=== PATIENT | female | born 1940 | race Two or more races ===

== ENCOUNTER 2020-05-25 16:15 | Inpatient (IN) | payer OTHER ==
[~2020-05-25] VITALS: Ht 162.6 cm; Wt 57.8 kg
[2020-05-25 18:25] LABS: BASOPHILS % 0.3 % (0.0-2.0); EOSINOPHILS % 0.1 % (0.0-5.0); HEMATOCRIT. 34.6 % (36.0-48.0); HEMOGLOBIN. 11.4 g/dL (12.0-16.0); LYMPHOCYTES % 19.1 % (20.0-50.0); MEAN CORPUSCULAR HEMOGLOBIN 32.1 pg (28.0-32.0); MEAN CORPUSCULAR VOLUME 97.6 fL (81.0-99.0); MEAN PLATELET VOLUME 9.9 fl (7.4-10.4); MONOCYTES % 4.5 % (2.0-8.0); PLATELET 146 x1000/uL (130-400); RED BLOOD CELL COUNT 3.54 mill/uL (4.2-5.4)
[2020-05-25] MEDS ORDERED: ADENOSINE 3 MG/ML 2ML VIAL IV ONE ×2 (18:30)
[2020-05-25 18:32] LABS: PROTHROMBIN TIME 10.8 sec (9.6-11.0)
[2020-05-25 18:41] LABS: CHLORIDE 102 mEq/L (98-107)
[2020-05-25 18:45] LABS: ETHANOL BLOOD < 10 mg/dL
[2020-05-25 19:03] LABS: CLARITY URINE CLOUDY (CLEAR); COLOR URINE ORANGE (YELLOW); KETONES URINE TRACE (NEGATIVE); LEUKOCYTE ESTERASE URINE 2+ (NEGATIVE); NITRITE URINE POSITIVE (NEGATIVE); OCCULT BLOOD URINE NEGATIVE (NEGATIVE); PH URINE 5.5 (4.5-8.0); PROTEIN URINE 1+ (NEGATIVE); SPECIFIC GRAVITY URINE 1.022 (1.005-1.030)
[2020-05-25] MEDS ORDERED: MAGNESIUM 2 G PREMIX 50 ML IV ONE (19:15)
[2020-05-25] MEDS ORDERED: ASPIRIN 81MG TABLET PO ONE (19:15)
[2020-05-25] MEDS ORDERED: KCL 20MEQ/100ML PREMIX 100 ML IV ONE (19:15)
[2020-05-25 19:30] LABS: *AMPHETAMINES SCREEN URINE NEGATIVE (NEGATIVE); *BARBITURATES SCREEN URINE NEGATIVE (NEGATIVE)
[2020-05-25] MEDS ORDERED: TRAMADOL 50MG TABLET PO PRN (19:30)
[2020-05-25] MEDS ORDERED: ACETAMINOPHEN 325MG TABLET PO PRN ×2 (19:30)
[2020-05-25] MEDS ORDERED: ONDANSETRON HCL 4MG/2ML INJ IV PRN (19:30)
[2020-05-25] MEDS ORDERED: CLONIDINE 0.1MG TABLET PO PRN (19:30)
[2020-05-25] MEDS ORDERED: NA PHOS,M-B/NA PHOS,DI-BA ENEMA 118ML PR PRN (19:30)
[2020-05-25] MEDS ORDERED: GUAIFENESIN 200MG/10ML SUGAR FREE UDC PO PRN (19:30)
[2020-05-25] MEDS ORDERED: DOCUSATE SODIUM 100MG CAPSULE PO PRN (19:30)
[2020-05-25] MEDS ORDERED: NITROGLYCERIN 0.4MG TABLET SL SL PRN (19:30)
[2020-05-25] MEDS ORDERED: IPRATROPIUM/ALBUTEROL 0.5-3(2.5)MG/3ML NEB NEB PRN (19:30)
[2020-05-25] MEDS ORDERED: MAGNESIUM/ALUMINUM HYDROXIDE/SIMETHICONE 30ML UDC PO PRN (19:30)
[2020-05-25] MEDS ORDERED: ZOLPIDEM TARTRATE 5MG TABLET PO PRN (19:30)
[2020-05-25 19:31] LABS: *BENZODIAZEPINES SCREEN URINE NEGATIVE (NEGATIVE); *COCAINE SCREEN URINE NEGATIVE (NEGATIVE); METHADONE URINE SCREEN NEGATIVE (NEGATIVE); OPIATES URINE SCREEN NEGATIVE (NEGATIVE); PHENCYCLIDINE URINE SCREEN NEGATIVE (NEGATIVE)
[2020-05-25 19:32] LABS: CANNABINOID URINE SCREEN NEGATIVE (NEGATIVE)
[2020-05-25] MEDS: SODIUM CHLORIDE 0.9% 1,000 ML IV SCH (20:05)
[2020-05-25 20:13] LABS: T4 FREE 1.37 ng/dL (0.76-1.46)
[2020-05-25] MEDS ORDERED: LEVOFLOXACIN 500MG PREMIX 100 ML IV NR (21:00)
[2020-05-25] MEDS ORDERED: POTASSIUM CHLORIDE 20MEQ TABLET SR PO NR (21:00)
[2020-05-25 21:16] LABS: FOLIC ACID (FOLATE) SERUM > 20.00 ng/mL (>5.38); VITAMIN B12 SERUM > 2000.0 pg/mL (211-911)
[2020-05-25] MEDS ORDERED: MAGNESIUM 4 G PREMIX 100 ML IV NR (22:00)
[2020-05-25] MEDS ORDERED: KCL 20MEQ/100ML PREMIX 100 ML IV NR (22:00)
[2020-05-25 23:49] LABS: CREATINE KINASE MB FRACTION 2.9 ng/mL (0.5-3.6)
[2020-05-26] VITALS (12 sets, daily range): BP systolic 115–150; BP diastolic 51–98
[2020-05-26] MEDS: DILTIAZEM HCL 60MG TABLET PO SCH ×4 (01:14→18:33)
[2020-05-26] MEDS: ATORVASTATIN CALCIUM 40MG TABLET PO SCH ×2 (01:15→20:23)
[2020-05-26] MEDS: ASCORBIC ACID 500 MG TABLET PO SCH ×3 (01:15→20:23)
[2020-05-26] MEDS: FAMOTIDINE 20MG TABLET PO SCH ×2 (01:16→20:23)
[2020-05-26] MEDS: ENOXAPARIN 60MG/0.6ML SYR SUBCUT SCH ×2 (01:23→08:24)
[2020-05-26] MEDS: SODIUM CHLORIDE 0.9% 1,000 ML IV SCH ×2 (05:44→16:52)
[2020-05-26 06:32] LABS: BASOPHILS % 0.3 % (0.0-2.0); EOSINOPHILS % 0.7 % (0.0-5.0); HEMATOCRIT. 30.8 % (36.0-48.0); HEMOGLOBIN. 10.1 g/dL (12.0-16.0); LYMPHOCYTES % 25.7 % (20.0-50.0); MEAN CORPUSCULAR VOLUME 97.2 fL (81.0-99.0); MEAN PLATELET VOLUME 10.2 fl (7.4-10.4); MONOCYTES % 6.8 % (2.0-8.0); NEUTROPHILS % 66.5 % (40.0-76.0); PLATELET 138 x1000/uL (130-400); RED BLOOD CELL COUNT 3.17 mill/uL (4.2-5.4)
[2020-05-26 06:42] LABS: CHLORIDE 107 mEq/L (98-107)
[2020-05-26 06:54] LABS: PHOSPHORUS 2.2 mg/dL (2.5-4.9)
[2020-05-26 06:56] LABS: CREATINE KINASE 216 IU/L (26-192)
[2020-05-26 06:59] LABS: CREATINE KINASE MB FRACTION 2.3 ng/mL (0.5-3.6)
[2020-05-26] MEDS ORDERED: PNEUMOCOCCAL 23-VAL P-SAC VAC 0.5 ML IM ONE (08:00)
[2020-05-26] MEDS ORDERED: ZINC SULFATE 220 MG ( 50 ) CAPSULE PO SCH (09:00)
[2020-05-26] MEDS ORDERED: POTASSIUM CHLORIDE 20MEQ/PACKET PO NR (09:45)
[2020-05-26] MEDS ORDERED: DEXTROSE 50% WATER 50ML SYRINGE IV PRN (09:45)
[2020-05-26] MEDS ORDERED: INFLUENZA VACCINE 05/PF 0.5 ML VIAL IM ONE (10:00)
[2020-05-26] MEDS ORDERED: MAGNESIUM 1 G PREMIX 100 ML IV NR (10:30)
[2020-05-26] MEDS ORDERED: POTASSIUM PHOS,M-BASIC-D-BASIC 15 MMOL in DEXT 5% WATER 245 ML IV NR (11:00)
[2020-05-26] MEDS: BLOOD SUGAR DIAGNOSTIC STRIP TEST SCH ×3 (12:02→20:23)
[2020-05-26] MEDS: INSULIN LISPRO 100 UNITS/ML SUBCUT SCH ×2 (12:20→17:20)
[2020-05-26] MEDS ORDERED: LEVOFLOXACIN 250MG PREMIX 50 ML IV SCH (21:00)
== END 2020-05-26 23:58 | disposition short-term general hospital (02) | DRG 309 ==
LOC: ER 16:15 → ENRESERV 22:50 → 3WST 23:29
PROVIDERS: ADMIT Internal Medicine; ATTEND Internal Medicine
DX: I47.1 Supraventricular tachycardia (principal); E44.1 Mild protein-calorie malnutrition; S52.092A Other fracture of upper end of left ulna, initial encounter for closed fracture; E11.9 Type 2 diabetes mellitus without complications; E83.42 Hypomagnesemia; E83.51 Hypocalcemia; E87.6 Hypokalemia; I10 Essential (primary) hypertension; W18.39XA Other fall on same level, initial encounter; R55 Syncope and collapse; I48.91 Unspecified atrial fibrillation; Y93.89 Activity, other specified; Y92.89 Other specified places as the place of occurrence of the external cause; Y99.8 Other external cause status; Z87.820 Personal history of traumatic brain injury; Z68.21 Body mass index [BMI] 21.0-21.9, adult; Z79.899 Other long term (current) drug therapy
CPT/HCPCS: 36415; 71045; 73080; 80053; 80061; 80305; 80320; 81003; 82140; 82550; 82553; 82607; 82746; 82962; 83036; 83540; 83550; 83605; 83735; 84100; 84439; 84443; 84484; 85025; 86850; 86900; 90732; 93005; 93306; 93970; 99291; J0153; J1650; J1956; J3475; J3480; J3490; J7060; G0480